=== PATIENT | male | born 1965 | race Caucasian/White ===

== ENCOUNTER 2019-04-17 12:18 | Observation (INO) ==
[2019-04-17] MEDS ORDERED: ACETAMINOPHEN 325 MG TABLET PO PRN (12:27)
[2019-04-17] MEDS ORDERED: ONDANSETRON 4 MG/2 ML VIAL IV PRN (12:27)
[2019-04-17] MEDS: SODIUM CHLORIDE 0.9% 1,000 ML IV SCH ×2 (15:04→22:21)
[2019-04-17] MEDS ORDERED: traMADol 50 MG TABLET PO PRN (16:26)
[2019-04-17] MEDS ORDERED: HYDROmorphone 2 MG/1 ML VIAL IM PRN (16:30)
[2019-04-17] MEDS: HYDROmorphone 2 MG/1 ML VIAL IV PRN (22:16)
[2019-04-18] MEDS: HYDROmorphone 2 MG/1 ML VIAL IV PRN ×5 (03:21→21:24)
[2019-04-18 05:31] LABS: Basophils # 0.1 10*3/uL (0.0-0.2); Basophils % 1.6 % (0.0-0.8); Eosinophils # 0.5 10*3/uL (0.0-0.87); Hematocrit 35.4 VOL% (42.0-52.0); Immature Granulocytes % 0.4 %; Immature Granulocytes Absolute 0.03 #; Lymphocytes # 2.1 10*3/uL (1.4-4.0); Lymphocytes % 29.5 % (21.2-54.2); Mean Corpuscular HGB Conc 33.9 GM/DL (32-36); Mean Corpuscular Volume 92.2 FL (87-102); Mean Platelet Volume 10.3 FL (9.6-12.0); Neutrophils % 52.5 % (38.7-73.9); Platelet Count 211 T/CUMM (130-400); Red Blood Count 3.84 MC/CUMM (3.8-5.5); Red Cell Distribution Width 12.1 % (9.3-17.3)
[2019-04-18] MEDS: SODIUM CHLORIDE 0.9% 1,000 ML IV SCH (05:49)
[2019-04-18 05:52] LABS: Albumin 2.9 G/DL (3.4-5.0); Bilirubin,Total 0.9 MG/DL (0.2-1.0); Calcium 8.2 MG/DL (8.5-10.1); Osmolality,Calculated 262.4 MOS/KG (273-304); Total Protein 6.2 G/DL (6.4-8.3)
[2019-04-18] MEDS: DEXTROSE 5% NACL 0.9% 1,000 ML IV SCH ×2 (07:46→17:35)
[2019-04-18] MEDS: NIACIN 500 MG TABLET PO SCH (08:54)
[2019-04-18] MEDS: POLYETHYLENE GLYCOL POWDER 17 GM PACK PO SCH (08:55)
[2019-04-18] MEDS: PANTOPRAZOLE 40 MG TABLET PO SCH (08:55)
[2019-04-18] MEDS: LEVOTHYROXINE 88 MCG TABLET PO SCH (08:55)
[2019-04-18] MEDS: ASPIRIN EC 81 MG TABLET PO SCH (08:55)
[2019-04-18] MEDS: HYDROCORTISONE 10 MG TABLET PO SCH ×2 (08:55→17:34)
[2019-04-18] MEDS ORDERED: ENOXAPARIN 30 MG/0.3 ML SYRINGE SUBCUT SCH (09:00)
[2019-04-19] MEDS: HYDROmorphone 2 MG/1 ML VIAL IV PRN ×3 (01:36→09:37)
[2019-04-19] MEDS: DEXTROSE 5% NACL 0.9% 1,000 ML IV SCH ×2 (01:42→09:38)
[2019-04-19] MEDS: LEVOTHYROXINE 88 MCG TABLET PO SCH (05:42)
[2019-04-19] MEDS: POLYETHYLENE GLYCOL POWDER 17 GM PACK PO SCH (08:38)
[2019-04-19] MEDS: NIACIN 500 MG TABLET PO SCH (08:38)
[2019-04-19] MEDS: ASPIRIN EC 81 MG TABLET PO SCH (08:39)
[2019-04-19] MEDS: HYDROCORTISONE 10 MG TABLET PO SCH (08:39)
[2019-04-19] MEDS: PANTOPRAZOLE 40 MG TABLET PO SCH (08:39)
[2019-04-19 09:00] LABS: Basophils # 0.1 10*3/uL (0.0-0.2); Basophils % 1.7 % (0.0-0.8); Eosinophils # 0.4 10*3/uL (0.0-0.87); Eosinophils % 7.4 % (0.00-10.9); Hematocrit 34.8 VOL% (42.0-52.0); Hemoglobin 11.8 GM/DL (14.0-18.0); Immature Granulocytes % 0.3 %; Immature Granulocytes Absolute 0.02 #; Lymphocytes # 2.1 10*3/uL (1.4-4.0); Lymphocytes % 35.5 % (21.2-54.2); Mean Corpuscular HGB Conc 33.9 GM/DL (32-36); Mean Corpuscular Volume 92.6 FL (87-102); Mean Platelet Volume 10.4 FL (9.6-12.0); Monocytes % 9.8 % (1.7-12.7); Neutrophils % 45.3 % (38.7-73.9); Platelet Count 222 T/CUMM (130-400); Red Blood Count 3.76 MC/CUMM (3.8-5.5); White Blood Count 5.9 T/CUMM (4-12)
[2019-04-19] MEDS ORDERED: ENOXAPARIN 40 MG/0.4 ML SYRINGE SUBCUT SCH (09:00)
[2019-04-19 09:18] LABS: Calcium 8.4 MG/DL (8.5-10.1)
[2019-04-19 11:58] VITALS: BP 98/57
== END 2019-04-19 12:12 | disposition home or self-care (01) ==
LOC: N.2E 13:29 → INTOOBSV 13:29
PROVIDERS: ADMIT Family Medicine; ATTEND Family Medicine